=== PATIENT | male | born 1970 | race Caucasian/White ===

== ENCOUNTER 2016-11-03 13:18 | Emergency (ER) | payer MEDICAID ==
[2016-11-03] MEDS ORDERED: LIDOCAINE 1%-EPI 1:100000 20 ML MDV SUBQ STA (14:19)
[2016-11-03] MEDS ORDERED: CLINDAMYCIN 150 MG CAPSULE PO STA (14:20)
[2016-11-03] MEDS ORDERED: LIDOCAINE 1%-EPI 1:100000 20 ML MDV ONE (14:22)
[2016-11-03] MEDS ORDERED: CLINDAMYCIN 150 MG CAPSULE PO ONE (14:22)
[2016-11-03] MEDS ORDERED: SODIUM CHLORIDE 0.9% 1,000 ML IV ONE (14:29)
== END 2016-11-03 15:54 | disposition home or self-care (01) ==
DX: L02.416 Cutaneous abscess of left lower limb (principal); L03.116 Cellulitis of left lower limb; I10 Essential (primary) hypertension; Z87.891 Personal history of nicotine dependence
CPT/HCPCS: 10060; 36415; 73590; 80053; 83690; 85025; 99283; 99284; A9270

== ENCOUNTER 2017-02-07 15:01 | Outpatient (CLI) | payer MEDICAID | END 2017-02-07 15:02 | disposition home or self-care (01) | DX: T84.84XD Pain due to internal orthopedic prosthetic devices, implants and grafts, subsequent encounter (principal) ==

== ENCOUNTER 2017-02-12 09:34 | Emergency (ER) | payer MEDICAID ==
[2017-02-12] MEDS ORDERED: SULFAMETH/TRIMETH DS 800/160 MG TABLET PO STA (12:52)
[2017-02-12] MEDS ORDERED: LIDOCAINE 1%-EPI 1:100000 20 ML MDV SUBQ STA (12:52)
[2017-02-12] MEDS ORDERED: SULFAMETH/TRIMETH DS 800/160 MG TABLET PO ONE (12:55)
[2017-02-12] MEDS ORDERED: LIDOCAINE 1%-EPI 1:100000 20 ML MDV ONE (12:55)
== END 2017-02-12 13:35 | disposition home or self-care (01) ==
DX: L02.01 Cutaneous abscess of face (principal); I10 Essential (primary) hypertension; E78.00 Pure hypercholesterolemia, unspecified; K21.9 Gastro-esophageal reflux disease without esophagitis; Z86.14 Personal history of Methicillin resistant Staphylococcus aureus infection; Z87.891 Personal history of nicotine dependence
CPT/HCPCS: 10060; 87070; 87077; 87181; 87205; 99283; A9270

== ENCOUNTER 2017-06-16 19:51 | Emergency (ER) | payer MEDICAID ==
[2017-06-16 20:11] VITALS: BP 163/83
[2017-06-16] MEDS ORDERED: cefTRIAXone 1 GM VIAL IM STA (21:19)
[2017-06-16] MEDS ORDERED: HYDROcod/ACET 5/325 Prepack 6 PO ONE ×2 (21:19→21:50)
[2017-06-16] MEDS ORDERED: LIDOCAINE 1% 2 ML VIAL ONE (21:50)
[2017-06-16] MEDS ORDERED: cefTRIAXone 1 GM VIAL ONE (21:50)
--- NOTE | 2017-06-16 22:03 | ED Physician Documentation ---
History of Present Illness - Stated complaint Stated Complaint: FACIAL PX - Chief complaint Chief Complaint: General - History obtained from History obtained from: Patient - History of Present Illness Timing: How many days ago (3-4) - Additonal information Additional information: 46-year-old male has developed some swelling and redness over the right eye. He went into see his primary care doctor and was placed on some Bactrim. Despite this his redness and swelling has progressed has become much more painful and his eyes almost swollen shut. He has had a slight amount of drainage from the central portion of the swelling above the eyebrow on the right side. He has not had fever but does feel fatigued.He had something similar to this on his chin several months ago. He is also recently had dental work done on the right side. Review of Systems Constitutional: reports: Chills, Fatigue. denies: Fever Eyes: denies: Decreased vision Ears: reports: Loss of hearing. denies: Ear pain Nose: reports: Congestion Throat: denies: Sore throat Cardiac: denies: Chest pain / pressure, Palpitations Respiratory: denies: Dyspnea, Cough GI: denies: Abdominal Pain : denies: Dysuria, Frequency Skin: denies: Rash Musculoskeletal: denies: Neck pain, Back pain, Extremity pain Neurologic: denies: Generalized weakness, Focal weakness, Numbness PD PAST MEDICAL HISTORY - Past Medical History Cardiovascular: Hypertension, High cholesterol Respiratory: None Neuro: Headache/migraine, Other Endocrine/Autoimmune: None GI: GERD : None HEENT: None Psych: None Musculoskeletal: None Derm: None - Past Surgical History Past Surgical History: Yes - Present Medications Home Medications: Ambulatory Orders Medication Instructions Recorded Confirmed Hydrochlorothiazide 25 mg PO DAILY 06/16/16 06/16/17 Lisinopril 40 mg PO DAILY 06/16/16 06/16/17 amLODIPine [Norvasc] 5 mg PO DAILY 11/15/16 06/16/17 Sulfamethox/Trimeth 800/160 1 each PO BID #14 tablet 02/12/17 06/16/17 [Bactrim Ds 800/160] Amox/Clav 875/125 [Augmentin] 1 each PO Q12H #14 tablet 06/16/17 HYDROcod/ACETAM 5/325 [Sutter 5/325] 1 - 2 ea PO Q6H PRN #15 tablet 06/16/17 - Allergies Allergies/Adverse Reactions: Allergies Allergy/AdvReac Type Severity Reaction Status Date / Time No Known Drug Allergies Allergy Verified 02/12/17 09:56 - Social History Does the pt smoke?: No Smoking Status: Former smoker Does the pt drink ETOH?: No Does the pt have substance abuse?: Yes - Immunizations Immunizations are current?: Yes Immunizations: TDAP >10years/unknown PD ED PE NORMAL - Vitals Vital signs reviewed: Yes (Tachycardic and hypertensive) - General General: No acute distress, Well developed/nourished - HEENT HEENT: PERRL, EOMI, Other (The left TM is mildly erythematous with decreased landmarks the right is clear over the right eye there is swelling above and below lids and especially over the eyebrow. There is a specific area that appears to have some superficial drainage from it the area is firm and not fluctuant but extremely tender and erythematous. The use of bedside ultrasound shows a superficial collection of fluid.) - Neck Neck: Supple, no meningeal sign - Respiratory Respiratory: No respiratory distress - Derm Derm: Normal color, Warm and dry, No rash - Extremities Extremities: No deformity, No edema - Neuro Neuro: Alert and oriented X 3, No motor deficit, No sensory deficit, Normal speech - Psych Psych: Normal mood, Normal affect Results - Vitals Vitals: Vital Signs - 24 hr 06/16/17 20:09 Temperature 37.1 C Heart Rate 109 H Respiratory 22 Rate Blood Pressure 163/83 H O2 Saturation 100 Oxygen O2 Source Room air PD MEDICAL DECISION MAKING - ED course Complexity details: reviewed old records, re-evaluated patient, considered differential, d/w patient ED course: 46-year-old male with a swelling above the right eye has a cellulitis periorbital on the right side and there is question of abscess formation above the eyebrow. This is numbed and lanced with a #15 blade with return of only a scant amount of pus and the wound is explored deeply it is swollen but without ana pus. The drains easily.He is administered 1 g of Rocephin IM and will place him on some Augmentin and I have encouraged him to use a warm compress. He is instructed to return to the emergency department should he have any progression of symptoms. Departure - Departure Disposition: 01 Home, Self Care Clinical Impression: Periorbital cellulitis of right eye, Abscess Condition: Stable Instructions: ED Cellulitis Judit Orbital, ED Abscess IandD Follow-Up: Ann-Marie Breen ARNP [Primary Care Provider] - Prescriptions: Amox/Clav 875/125 [Augmentin] 1 each PO Q12H #14 tablet HYDROcod/ACETAM 5/325 [Sutter 5/325] 1 - 2 ea PO Q6H PRN #15 tablet PRN Reason: Pain Comments: Today it appears the antibiotic you are on the BActrim has failed and we are switching her antibiotic to Augmentin.
== END 2017-06-16 22:26 | disposition home or self-care (01) ==
LOC: ED 19:51
DX: L03.213 Periorbital cellulitis (principal); L02.01 Cutaneous abscess of face; I10 Essential (primary) hypertension; E78.00 Pure hypercholesterolemia, unspecified; Z87.891 Personal history of nicotine dependence
CPT/HCPCS: 10060; 96372; 99283

== ENCOUNTER 2017-07-19 12:41 | Outpatient (CLI) | payer MEDICAID ==
[2017-07-19 18:48] LABS: CHOLESTEROL 192 mg/dL; HDL CHOLESTEROL 48 mg/dL; LDL/HDL RATIO 2.5 (<3.6); TRIGLYCERIDES 130 mg/dL; VLDL CHOLESTEROL 26 mg/dL
== END 2017-07-19 12:42 | disposition home or self-care (01) ==
LOC: LAB.F 12:41
PROVIDERS: ATTEND Nurse Practitioner Family
DX: I10 Essential (primary) hypertension (principal); I50.9 Heart failure, unspecified
CPT/HCPCS: 36415; 80061; 83880; 84443

== ENCOUNTER 2017-11-21 08:00 | Outpatient (CLI) | payer MEDICAID ==
[2017-11-21 18:23] LABS: CREATININE 1.1 mg/dL (0.6-1.2)
== END 2017-11-21 08:01 | disposition home or self-care (01) ==
LOC: LAB.F 08:00
PROVIDERS: ATTEND Nurse Practitioner Family
DX: R60.0 Localized edema (principal)
CPT/HCPCS: 36415; 80048

== ENCOUNTER 2018-01-17 08:00 | Outpatient (CLI) | payer MEDICAID ==
[2018-01-17 18:01] LABS: CALCIUM 8.8 mg/dL (8.5-10.3); CREATININE 1.1 mg/dL (0.6-1.2)
== END 2018-01-17 08:01 | disposition home or self-care (01) ==
LOC: LAB.F 08:00
PROVIDERS: ATTEND Nurse Practitioner Family
DX: R60.0 Localized edema (principal)
CPT/HCPCS: 36415; 80048

== ENCOUNTER 2018-03-05 12:57 | Inpatient (IN) | payer MEDICAID ==
[2018-03-05 13:54] LABS: BASOPHILS % (AUTO) 0.2 %; EOSINOPHILS % (AUTO) 0.3 %; HGB - HEMOGLOBIN 14.3 g/dL (14.0-18.0); LYMPHOCYTES # (AUTO) 1.2 10^3/uL (1.5-3.5); LYMPHOCYTES % (AUTO) 9.2 %; MEAN CORPUSCULAR HEMOGLOBIN 32.6 pg (27.0-31.0); MEAN CORPUSCULAR HGB CONC 35.2 g/dL (32.0-36.0); MEAN CORPUSCULAR VOLUME 92.5 fL (80.0-94.0); MEAN PLATELET VOLUME 6.9 fL (7.4-11.4); MONOCYTES # (AUTO) 1.1 10^3/uL (0.0-1.0); MONOCYTES % (AUTO) 8.7 %; NEUTROPHILS # (AUTO) 10.6 10^3/uL (1.5-6.6); NEUTROPHILS % (AUTO) 81.6 %; PLT - PLATELET COUNT 295 10^3/uL (130-450); RED CELL DISTRIBUTION WIDTH 12.6 % (12.0-15.0)
[2018-03-05 14:06] LABS: ALBUMIN 3.8 g/dL (3.2-5.5); ALBUMIN/GLOBULIN RATIO 0.8 (1.0-2.2); BILIRUBIN,TOTAL 1.6 mg/dL (0.2-1.0); CALCIUM 8.8 mg/dL (8.5-10.3); CREATININE 1.2 mg/dL (0.6-1.2); TOTAL PROTEIN 8.3 g/dL (6.7-8.2)
[2018-03-05] MEDS ORDERED: SODIUM CHLORIDE 0.9% 1,000 ML IV ONE (15:06)
[2018-03-05] MEDS ORDERED: AMPICILLIN/SULBACTAM 3 GM in SODIUM CHLORIDE 0.9% MINIBAG 100 ML IV STA (15:06)
[2018-03-05] MEDS ORDERED: VANCOMYCIN INJ 2 GM in SODIUM CHLORIDE 0.9% 500 ML IV STA (15:06)
--- NOTE | 2018-03-05 15:11 | ED Physician Documentation ---
History of Present Illness - Stated complaint Stated Complaint: LEFT LEG SWOLLEN - Chief complaint Chief Complaint: Cardiac - History obtained from History obtained from: Patient - History of Present Illness Timing: How many days ago (3) Pain level max: 7 Pain level now: 7 Improved by: nothing Worsened by: palpation, walking - Additonal information Additional information: Patient is a 47-year-old gentleman who presents to the emergency department with redness and swelling to the left lower extremity for the past 2-3 days. States increasing pain. Subjective fevers and chills at home. No vomiting. States he is "prediabetic". Has not been on antibiotics recently. Review of Systems Constitutional: reports: Fever (subjective), Chills, Myalgias Ears: denies: Ear pain Nose: denies: Rhinorrhea / runny nose, Congestion Throat: denies: Sore throat Cardiac: denies: Chest pain / pressure Respiratory: denies: Cough, Wheezing GI: denies: Vomiting, Diarrhea Skin: denies: Rash Musculoskeletal: denies: Neck pain, Back pain Neurologic: denies: Focal weakness, Numbness, Headache PD PAST MEDICAL HISTORY - Past Medical History Past Medical History: Yes Cardiovascular: Hypertension, High cholesterol Respiratory: None Neuro: Headache/migraine, Other Endocrine/Autoimmune: None GI: GERD : None HEENT: None Psych: None Musculoskeletal: None Derm: None - Past Surgical History Past Surgical History: Yes - Present Medications Home Medications: Ambulatory Orders Medication Instructions Recorded Confirmed Lisinopril 40 mg PO DAILY 06/16/16 03/05/18 Furosemide [Lasix] 80 mg PO DAILY 03/05/18 03/05/18 Metoprolol Succinate 200 mg PO DAILY 03/05/18 03/05/18 Potassium Chloride 10 meq PO DAILY 03/05/18 03/05/18 - Allergies Allergies/Adverse Reactions: Allergies Allergy/AdvReac Type Severity Reaction Status Date / Time No Known Drug Allergies Allergy Verified 03/05/18 15:59 - Social History Does the pt smoke?: No Smoking Status: Never smoker Does the pt drink ETOH?: No Does the pt have substance abuse?: Yes - Immunizations Immunizations are current?: Yes Immunizations: TDAP >10years/unknown - POLST Patient has POLST: No PD ED PE NORMAL - Vitals Vital signs reviewed: Yes - General General: Alert and oriented X 3, No acute distress - HEENT HEENT: Moist mucous membranes - Neck Neck: Supple, no meningeal sign - Cardiac Cardiac: RRR, Strong equal pulses - Respiratory Respiratory: No respiratory distress, Clear bilaterally - Abdomen Abdomen: Soft, Non tender, Non distended - Back Back: No CVA TTP, No spinal TTP - Derm Derm: Warm and dry - Extremities Extremities: Other (2+ BLE edema, L leg is diffusely erythematous, especially below the knee to the toes. erythemtous streaking up to the groin. No crepitus) - Neuro Neuro: Alert and oriented X 3 - Psych Psych: Normal mood, Normal affect Results - Vitals Vitals: Vital Signs - 24 hr 03/05/18 13:02 Temperature 36.3 C L Heart Rate 104 H Respiratory 20 Rate Blood Pressure 150/86 H O2 Saturation 97 Oxygen O2 Source Room air - Labs Labs: Laboratory Tests 03/05/18 03/05/18 03/05/18 13:50 13:50 13:50 WBC 13.0 H RBC 4.40 L Hgb 14.3 Hct 40.7 L MCV 92.5 MCH 32.6 H MCHC 35.2 RDW 12.6 Plt Count 295 MPV 6.9 L Neut # 10.6 H Lymph # 1.2 L Reagan # 1.1 H Eos # 0.0 Baso # 0.0 Absolute Nucleated RBC 0.00 Nucleated RBC % 0.0 Sodium 132 L Potassium 3.8 Chloride 97 L Carbon Dioxide 23 Anion Gap 12.0 BUN 17 Creatinine 1.2 Estimated GFR (MDRD) 65 L Glucose 192 H Lactic Acid Calcium 8.8 Total Bilirubin 1.6 H AST 41 ALT 43 Alkaline Phosphatase 83 Troponin I < 0.04 B-Natriuretic Peptide Total Protein 8.3 H Albumin 3.8 Globulin 4.5 H Albumin/Globulin Ratio 0.8 L Lipase 29 Ethyl Alcohol 03/05/18 03/05/18 03/05/18 13:50 13:50 15:11 WBC RBC Hgb Hct MCV MCH MCHC RDW Plt Count MPV Neut # Lymph # Reagan # Eos # Baso # Absolute Nucleated RBC Nucleated RBC % Sodium Potassium Chloride Carbon Dioxide Anion Gap BUN Creatinine Estimated GFR (MDRD) Glucose Lactic Acid 1.2 Calcium Total Bilirubin AST ALT Alkaline Phosphatase Troponin I B-Natriuretic Peptide 27 Total Protein Albumin Globulin Albumin/Globulin Ratio Lipase Ethyl Alcohol < 5.0 PD MEDICAL DECISION MAKING - ED course Complexity details: reviewed results, re-evaluated patient, considered differential, d/w patient, d/w family, d/w financial reporting consultant ([id number] - Dr. Kirk ( hospitalist who accepts)) ED course: Patient is a 47-year-old male with extensive cellulitis of the left lower extremity with lymphangitic spread to the groin. There is an open wound as well. Will start on broad-spectrum antibiotics and admit for IV antibiotics. No evidence of necrotizing fasciitis. No crepitus. Discussed the case with Dr. Kirk, hospitalist who accepts. Blood cultures also drawn. This document was made in part using voice recognition software. While efforts are made to proofread this document, sound alike and grammatical errors may occur. Departure - Departure Disposition: 66 [facility] DC/Xfer Clinical Impression: Cellulitis Qualifiers: Site of cellulitis: extremity Site of cellulitis of extremity: lower extremity Laterality: left Qualified Code(s): L03.116 - Cellulitis of left lower limb Condition: Stable Discharge Date/Time: 03/05/18 16:14
[2018-03-05] MEDS ORDERED: SODIUM CHLORIDE FLUSH 0.9% 10 ML SYRINGE IVP PRN (15:22)
[2018-03-05] MEDS ORDERED: ACETAMINOPHEN 325 MG TABLET PO PRN (17:07)
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
[2018-03-05] MEDS: SODIUM CHLORIDE 0.9% 1,000 ML IV SCH (17:51)
[2018-03-05] MEDS ORDERED: HYDROmorphone 2 MG/ML VIAL IVP PRN (17:56)
[2018-03-05] MEDS: SODIUM CHLORIDE FLUSH 0.9% 10 ML SYRINGE IVP SCH ×3 (18:39→23:53)
[2018-03-05 19:48] LABS: MUDS CUTOFF CONCENTRATIONS CUTOFF CONC BELOW:
[2018-03-05 20:03] LABS: COCAINE SCREEN URINE NEGATIVE (NEGATIVE); METHAMPHETAMINES SCREEN, URINE POSITIVE (NEGATIVE); OPIATE SCREEN, URINE NEGATIVE (NEGATIVE)
[2018-03-05 20:04] LABS: AMPHETAMINE SCREEN,URINE POSITIVE (NEGATIVE); BENZODIAZEPINES SCREEN, URINE NEGATIVE (NEGATIVE); METHADONE SCREEN, URINE NEGATIVE (NEGATIVE); OXYCODONE SCREEN, URINE NEGATIVE (NEGATIVE); PROPOXYPHENE SCREEN, URINE NEGATIVE (NEGATIVE); TRICYCLIC ANTIDEPRESSANT,URINE NEGATIVE (NEGATIVE)
[2018-03-05] MEDS: METOPROLOL SUCCINATE 50 MG TABLET PO SCH (21:31)
[2018-03-05] MEDS: ENOXAPARIN 40 MG/0.4 ML SYRINGE SUBQ SCH (21:31)
[2018-03-05] MEDS: CLINDAMYCIN 900 MG/50 ML 50 ML IV SCH (23:51)
[2018-03-06] MEDS ORDERED: ONDANSETRON 4 MG/2 ML VIAL IVP PRN (00:07)
[2018-03-06] MEDS: SODIUM CHLORIDE 0.9% 1,000 ML IV SCH (02:34)
[2018-03-06 04:36] LABS: BILIRUBIN,URINE NEGATIVE (NEGATIVE); GLUCOSE, URINE (UA) NEGATIVE (NEGATIVE); KETONES,URINE (UA) NEGATIVE (NEGATIVE); LEUKOCYTE ESTERASE, URINE NEGATIVE (NEGATIVE); NITRITE,URINE NEGATIVE (NEGATIVE); OCCULT BLOOD,URINE NEGATIVE (NEGATIVE); PROTEIN,URINE 30 mg/dL (NEGATIVE); UROBILINOGEN,URINE 0.2 (NORMAL) E.U./dL (NORMAL)
[2018-03-06 04:38] LABS: CLARITY,URINE CLEAR (CLEAR)
[2018-03-06 04:42] LABS: BACTERIA,URINE None Seen /HPF (None Seen); RBC,URINE None Seen /HPF (0-5); SQUAMOUS EPITHELIAL CELL,UR RARE Squamous (<= Few)
[2018-03-06] MEDS: CLINDAMYCIN 900 MG/50 ML 50 ML IV SCH (05:42)
[2018-03-06 06:02] LABS: BASOPHILS % (AUTO) 0.5 %; EOSINOPHILS # (AUTO) 0.1 10^3/uL (0.0-0.7); EOSINOPHILS % (AUTO) 0.7 %; HGB - HEMOGLOBIN 13.1 g/dL (14.0-18.0); LYMPHOCYTES # (AUTO) 1.4 10^3/uL (1.5-3.5); LYMPHOCYTES % (AUTO) 15.3 %; MEAN CORPUSCULAR HEMOGLOBIN 31.8 pg (27.0-31.0); MEAN CORPUSCULAR HGB CONC 33.8 g/dL (32.0-36.0); MEAN CORPUSCULAR VOLUME 94.2 fL (80.0-94.0); MONOCYTES # (AUTO) 1.1 10^3/uL (0.0-1.0); MONOCYTES % (AUTO) 12.1 %; NEUTROPHILS # (AUTO) 6.4 10^3/uL (1.5-6.6); NEUTROPHILS % (AUTO) 71.4 %; PLT - PLATELET COUNT 275 10^3/uL (130-450); RED BLOOD COUNT 4.12 10^6/uL (4.70-6.10); RED CELL DISTRIBUTION WIDTH 12.4 % (12.0-15.0)
[2018-03-06 06:17] LABS: HEMOGLOBIN A1C 0.55 g/dL; HEMOGLOBIN A1C % 5.5 % (4.6-6.2)
[2018-03-06 06:19] LABS: CHOL/HDL RATIO 5.1 (<5.0); CHOLESTEROL 137 mg/dL; HDL CHOLESTEROL 27 mg/dL; LDL CHOLESTEROL,CALCULATED 82 mg/dL; VLDL CHOLESTEROL 28 mg/dL
[2018-03-06 06:31] LABS: ALBUMIN/GLOBULIN RATIO 0.7 (1.0-2.2); BILIRUBIN,TOTAL 1.3 mg/dL (0.2-1.0); CALCIUM 8.2 mg/dL (8.5-10.3); CREATININE 1.1 mg/dL (0.6-1.2); CRP - C-REACTIVE PROTEIN 18.2 mg/dL (0-1.0); TOTAL PROTEIN 7.2 g/dL (6.7-8.2)
[2018-03-06 08:18] VITALS: BP 134/91
[2018-03-06] MEDS: SODIUM CHLORIDE FLUSH 0.9% 10 ML SYRINGE IVP SCH (08:40)
[2018-03-06] MEDS: ENOXAPARIN 40 MG/0.4 ML SYRINGE SUBQ SCH (08:41)
[2018-03-06] MEDS: METOPROLOL SUCCINATE 50 MG TABLET PO SCH (08:41)
[2018-03-06] MEDS ORDERED: LACTOBACILLUS RHAMNOSUS GG CAPSULE PO SCH (09:00)
[2018-03-06] MEDS ORDERED: POLYETHYLENE GLYCOL 3350 17 GM PACKET PO SCH (09:00)
--- NOTE | 2018-03-06 12:35 | Discharge Plan ---
Discharge Plan Disposition: Home, Self Care Condition: Good Prescriptions: Clindamycin HCl [Clindamycin 150MG CAP] 150 mg PO TID 10 Days #90 capsule Saccharomyces Boulardii [Florastor] 250 mg PO BID 20 Days #40 capsule Diet: Regular Activity Restrictions: Activity as Tolerated Shower Restrictions: No Driving Restrictions: No Weight Bearing: Full Weight Additional Instructions or Follow Up instructions: You were treated overnight for left lower extremity cellulitis. You need to take an antibiotic for at least the next 10 days. If you do not, your infection will keep spreading and may cause a full body infection if left untreated. Please see your primary doctor within one week to make sure things are healing well. No Smoking: If you smoke, Please STOP! Call for help. Follow-up with: Ann-Marie Breen ARNP [Primary Care Provider] -
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
== END 2018-03-06 13:10 | disposition home or self-care (01) | DRG 603 ==
LOC: ED 12:57 → MS2 15:23
PROVIDERS: ADMIT Nurse Practitioner; ATTEND Nurse Practitioner
DX: L03.116 Cellulitis of left lower limb (principal); Z68.41 Body mass index [BMI] 40.0-44.9, adult; F15.280 Other stimulant dependence with stimulant-induced anxiety disorder; E66.01 Morbid (severe) obesity due to excess calories; G89.29 Other chronic pain; R73.03 Prediabetes; I10 Essential (primary) hypertension; E78.5 Hyperlipidemia, unspecified; K21.9 Gastro-esophageal reflux disease without esophagitis; H54.7 Unspecified visual loss; F32.9 Major depressive disorder, single episode, unspecified; M19.90 Unspecified osteoarthritis, unspecified site; Z86.14 Personal history of Methicillin resistant Staphylococcus aureus infection; F15.24 Other stimulant dependence with stimulant-induced mood disorder; F10.21 Alcohol dependence, in remission
CPT/HCPCS: 36415; 80053; 80061; 80306; 80320; 81001; 81003; 82977; 83036; 83605; 83690; 83721; 83880; 84484; 85025; 85651; 86140; 87040; 87086; 87640; 93005; 93306; 99283; 99284

== ENCOUNTER 2018-05-19 16:00 | Outpatient (CLI) | payer MEDICAID | END 2018-05-20 08:01 | disposition home or self-care (01) | LOC: LAB.R 16:00 | PROVIDERS: ATTEND Nurse Practitioner Family | DX: L08.89 Other specified local infections of the skin and subcutaneous tissue (principal) | CPT/HCPCS: 87070; 87181; 87205 ==

== ENCOUNTER 2020-12-29 17:32 | Outpatient (CLI) | payer MEDICAID | END 2020-12-29 23:59 | disposition short-term general hospital (02) | LOC: EMS 17:32 | DX: R40.4 Transient alteration of awareness (principal) | CPT/HCPCS: A0425; A0427; A0999 ==

== ENCOUNTER 2021-01-25 16:18 | Outpatient (CLI) | payer MEDICAID ==
[2021-01-25 20:05] LABS: BASOPHILS % (AUTO) 0.3 %; EOSINOPHILS % (AUTO) 0.5 %; HCT - HEMATOCRIT 34.4 % (42.0-52.0); HGB - HEMOGLOBIN 11.7 g/dL (14.0-18.0); LYMPHOCYTES % (AUTO) 13.4 %; MEAN CORPUSCULAR HEMOGLOBIN 32.1 pg (27.0-31.0); MEAN CORPUSCULAR VOLUME 94.5 fL (80.0-94.0); MEAN PLATELET VOLUME 9.3 fL (7.4-11.4); MONOCYTES # (AUTO) 0.2 10^3/uL (0.0-1.0); MONOCYTES % (AUTO) 2.9 %; NEUTROPHILS # (AUTO) 6.3 10^3/uL (1.5-6.6); PLT - PLATELET COUNT 386 10^3/uL (130-450); RED BLOOD COUNT 3.64 10^6/uL (4.70-6.10); RED CELL DISTRIBUTION WIDTH 12.6 % (12.0-15.0); WHITE BLOOD COUNT 7.7 x10^3/uL (4.8-10.8)
[2021-01-25 20:26] LABS: BILIRUBIN,URINE NEGATIVE (NEGATIVE); GLUCOSE, URINE (UA) 250 mg/dL (NEGATIVE); KETONES,URINE (UA) NEGATIVE (NEGATIVE); LEUKOCYTE ESTERASE, URINE NEGATIVE (NEGATIVE); NITRITE,URINE NEGATIVE (NEGATIVE); OCCULT BLOOD,URINE NEGATIVE (NEGATIVE); PH,URINE 6.5 PH (5.0-7.5); PROTEIN,URINE NEGATIVE (NEGATIVE); UROBILINOGEN,URINE 0.2 (NORMAL) E.U./dL (NORMAL)
[2021-01-25 20:35] LABS: BACTERIA,URINE None Seen /HPF (None Seen); CLARITY,URINE CLEAR (CLEAR); RBC,URINE 0-5 /HPF (0-5); SQUAMOUS EPITHELIAL CELL,UR NONE SEEN (<= Few); WBC,URINE 0-3 /HPF (0-3)
[2021-01-25 22:23] LABS: ALBUMIN 4.1 g/dL (3.2-5.5); ALBUMIN/GLOBULIN RATIO 1.1 (1.0-2.2); BILIRUBIN,TOTAL 0.6 mg/dL (0.2-1.0); CALCIUM 9.3 mg/dL (8.5-10.3); CREATININE 1.7 mg/dL (0.6-1.2); POTASSIUM 4.1 mmol/L (3.5-5.0); TOTAL PROTEIN 7.9 g/dL (6.7-8.2)
== END 2021-01-25 16:19 | disposition home or self-care (01) ==
LOC: LAB.S 16:18
PROVIDERS: ATTEND Internal Medicine
DX: I10 Essential (primary) hypertension (principal)
CPT/HCPCS: 36415; 80053; 81001; 85025; 87086

== ENCOUNTER 2021-03-13 16:08 | Outpatient (CLI) | payer MEDICAID ==
[2021-03-13 20:58] LABS: ALBUMIN 4.4 g/dL (3.2-5.5); ALBUMIN/GLOBULIN RATIO 1.1 (1.0-2.2); BILIRUBIN,TOTAL 1.1 mg/dL (0.2-1.0); CALCIUM 9.3 mg/dL (8.5-10.3); CREATININE 1.6 mg/dL (0.6-1.2); PHOSPHORUS 3.3 mg/dL (2.5-4.6); POTASSIUM 4.6 mmol/L (3.5-5.0); TOTAL PROTEIN 8.4 g/dL (6.7-8.2)
[2021-03-13 21:39] LABS: ESTIMATED AVERAGE GLUCOSE 140 mg/dL (70-100); HEMOGLOBIN A1c% 6.5 % (4.27-6.07)
== END 2021-03-13 16:09 | disposition home or self-care (01) ==
LOC: LAB.S 16:08
PROVIDERS: ATTEND Internal Medicine
DX: N28.9 Disorder of kidney and ureter, unspecified (principal); E11.8 Type 2 diabetes mellitus with unspecified complications
CPT/HCPCS: 36415; 80053; 83036; 84100

== ENCOUNTER 2021-06-09 15:40 | Outpatient (CLI) | payer MEDICAID ==
[2021-06-09 20:17] LABS: ALBUMIN 3.9 g/dL (3.2-5.5); BILIRUBIN,TOTAL 1.3 mg/dL (0.2-1.0); CALCIUM 9.1 mg/dL (8.5-10.3); CREATININE 1.4 mg/dL (0.6-1.2); POTASSIUM 4.2 mmol/L (3.5-5.0); TOTAL PROTEIN 7.9 g/dL (6.7-8.2)
[2021-06-09 20:18] LABS: ESTIMATED AVERAGE GLUCOSE 143 mg/dL (70-100); HEMOGLOBIN A1c% 6.6 % (4.27-6.07)
== END 2021-06-09 15:41 | disposition home or self-care (01) ==
LOC: LAB.S 15:40
PROVIDERS: ATTEND Internal Medicine
DX: N28.9 Disorder of kidney and ureter, unspecified (principal); E11.8 Type 2 diabetes mellitus with unspecified complications
CPT/HCPCS: 36415; 80053; 83036

== ENCOUNTER 2021-06-20 13:00 | Outpatient (CLI) | payer MEDICAID ==
[2021-06-20 16:06] LABS: ALBUMIN 4.2 g/dL (3.2-5.5); ALBUMIN/GLOBULIN RATIO 1.1 (1.0-2.2); CALCIUM 9.7 mg/dL (8.5-10.3); CREATININE 1.5 mg/dL (0.6-1.2); POTASSIUM 4.9 mmol/L (3.5-5.0); TOTAL PROTEIN 8.1 g/dL (6.7-8.2)
== END 2021-06-20 13:01 | disposition home or self-care (01) ==
LOC: LAB.S 13:00
PROVIDERS: ATTEND Internal Medicine
DX: N28.9 Disorder of kidney and ureter, unspecified (principal)
CPT/HCPCS: 36415; 80053

== ENCOUNTER 2021-07-28 15:01 | Outpatient (CLI) | payer MEDICAID ==
[2021-07-28 20:09] LABS: ALBUMIN 4.4 g/dL (3.2-5.5); ALBUMIN/GLOBULIN RATIO 1.1 (1.0-2.2); BILIRUBIN,TOTAL 1.1 mg/dL (0.2-1.0); CALCIUM 9.4 mg/dL (8.5-10.3); CREATININE 1.2 mg/dL (0.6-1.2); POTASSIUM 4.5 mmol/L (3.5-5.0); TOTAL PROTEIN 8.4 g/dL (6.7-8.2)
== END 2021-07-28 15:02 | disposition home or self-care (01) ==
LOC: LAB.S 15:01
PROVIDERS: ATTEND Internal Medicine
DX: R60.9 Edema, unspecified (principal)
CPT/HCPCS: 36415; 80053

== ENCOUNTER 2021-09-14 18:19 | Emergency (ER) | payer MEDICAID ==
[2021-09-14] MEDS ORDERED: SODIUM CHLORIDE 0.9% 1,000 ML IV STA ×2 (18:34)
[2021-09-14] MEDS ORDERED: INSULIN REGULAR HUMAN 100 UNIT/1 ML 10 ML MDV SUBQ STA (18:34)
[2021-09-14 18:59] LABS: BASOPHILS # (AUTO) 0.1 10^3/uL (0.0-0.1); BASOPHILS % (AUTO) 0.5 %; EOSINOPHILS # (AUTO) 0.2 10^3/uL (0.0-0.7); EOSINOPHILS % (AUTO) 2.1 %; HCT - HEMATOCRIT 39.6 % (42.0-52.0); HGB - HEMOGLOBIN 14.2 g/dL (14.0-18.0); LYMPHOCYTES # (AUTO) 1.8 10^3/uL (1.5-3.5); LYMPHOCYTES % (AUTO) 17.1 %; MEAN CORPUSCULAR HEMOGLOBIN 33.2 pg (27.0-31.0); MEAN CORPUSCULAR HGB CONC 35.9 g/dL (32.0-36.0); MEAN CORPUSCULAR VOLUME 92.5 fL (80.0-94.0); MEAN PLATELET VOLUME 9.4 fL (7.4-11.4); MONOCYTES # (AUTO) 0.7 10^3/uL (0.0-1.0); MONOCYTES % (AUTO) 6.3 %; NEUTROPHILS # (AUTO) 7.7 10^3/uL (1.5-6.6); NEUTROPHILS % (AUTO) 73.5 %; PLT - PLATELET COUNT 389 10^3/uL (130-450); RED BLOOD COUNT 4.28 10^6/uL (4.70-6.10); RED CELL DISTRIBUTION WIDTH 11.9 % (12.0-15.0); WHITE BLOOD COUNT 10.5 x10^3/uL (4.8-10.8)
[2021-09-14 19:04] LABS: VBG PH 7.392 (7.31-7.41)
[2021-09-14 19:05] LABS: VBG BASE EXCESS -1.7 mmol/L (-2 - +2); VBG HCO3 22.8 mmol/L (23-28); VBG OXYGEN SATURATION 94.6 % (60-80); VBG PCO2 38.4 mmHg (41-51); VBG PO2 72.6 mmHg (25-47)
[2021-09-14 19:13] LABS: ALBUMIN 4.4 g/dL (3.2-5.5); ALBUMIN/GLOBULIN RATIO 1.1 (1.0-2.2); ALKALINE PHOSPHATASE 107 IU/L (42-121); ALT ALANINE AMINOTRANSFERASE 32 IU/L (10-60); AST ASPARTATE AMINOTRANSFERASE 21 IU/L (10-42); BILIRUBIN,TOTAL 1.1 mg/dL (0.2-1.0); BUN - BLOOD UREA NITROGEN 30 mg/dL (6-20); CARBON DIOXIDE - CO2 26 mmol/L (21-32); CHLORIDE 91 mmol/L (101-111); CREATININE 1.5 mg/dL (0.6-1.2); GFR - MDRD 49 (>89); LIPASE 111 U/L (22-51); POTASSIUM 4.6 mmol/L (3.5-5.0); SODIUM 126 mmol/L (135-145); TOTAL PROTEIN 8.5 g/dL (6.7-8.2)
[2021-09-14 19:15] LABS: GLUCOSE 529 mg/dL (70-100)
[2021-09-14 19:19] LABS: KETONES, SERUM (ACETEST) NEGATIVE (NEGATIVE)
[2021-09-14] MEDS ORDERED: INSULIN REGULAR HUMAN 100 UNIT/1 ML 10 ML MDV IVP STA (20:01)
[2021-09-14 20:57] VITALS: BP 126/74
--- NOTE | 2021-09-14 20:57 | ED Physician Documentation ---
History of Present Illness - Stated complaint Stated Complaint: PER CLINIC, HIGH BLOOD SUGAR - Chief complaint Chief Complaint: General - History obtained from History obtained from: Patient - History of Present Illness Timing: Today Pain level max: 0 Pain level now: 0 - Additonal information Additional information: Patient is a 51-year-old male, longstanding history of diabetes who presents to the emergency department with hyperglycemia at the walk-in clinic today. They sent him here for further evaluation. Patient is asymptomatic. He stopped taking all of his insulin about 6 months ago. He states his blood sugar is been 4-500 for the past week or 2. No fevers. No chills. No abdominal pain. No v omiting. He did take his long-acting insulin last night. Urinalysis was negative for infection at the walk-in clinic. 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 : Renal insuffiency, Nocturia HEENT: Chronic vision loss, Other Psych: Depression, Anxiety, Other Musculoskeletal: Osteoarthritis, Fatigue, Chronic back pain Derm: Other drug resistant infections - Past Surgical History Past Surgical History: Yes Ortho: Arthroscopic surgery, Other Neuro: Craniotomy - Present Medications Home Medications: Ambulatory Orders Medication Instructions Recorded Confirmed Lisinopril 40 mg PO DAILY 06/16/16 03/05/18 Furosemide [Lasix] 80 mg PO DAILY 03/05/18 03/05/18 Metoprolol Succinate 200 mg PO DAILY 03/05/18 03/05/18 Potassium Chloride 10 meq PO DAILY 03/05/18 03/05/18 Clindamycin HCl [Clindamycin 150MG 150 mg PO TID 10 Days #90 capsule 03/06/18 CAP] Saccharomyces Boulardii [Florastor] 250 mg PO BID 20 Days #40 capsule 03/06/18 - Allergies Allergies/Adverse Reactions: Allergies Allergy/AdvReac Type Severity Reaction Status Date / Time No Known Drug Allergies Allergy Verified 09/14/21 18:24 - Social History Does the pt smoke?: No Smoking Status: Never smoker Does the pt drink ETOH?: No Does the pt have substance abuse?: Yes - Immunizations Immunizations are current?: Yes Immunizations: TDAP >10years/unknown - POLST Patient has POLST: No POLST Status: Full Code PD ED PE NORMAL - Vitals Vital signs reviewed: Yes - General General: Alert and oriented X 3, No acute distress, Well developed/nourished - HEENT HEENT: PERRL, Moist mucous membranes - Neck Neck: Supple, no meningeal sign - Cardiac Cardiac: RRR, Strong equal pulses - Respiratory Respiratory: No respiratory distress, Clear bilaterally - Abdomen Abdomen: Soft, Non tender, Non distended - Derm Derm: Warm and dry - Extremities Extremities: No calf tenderness / cord - Neuro Neuro: Alert and oriented X 3 - Psych Psych: Normal mood, Normal affect Results - Vitals Vitals: Vital Signs - 24 hr 09/14/21 09/14/21 18:21 20:56 Temperature 36.5 C 36.9 C Heart Rate 99 87 Respiratory 18 15 Rate Blood Pressure 143/83 H 126/74 O2 Saturation 97 98 Oxygen O2 Source Room air - Labs Labs: Laboratory Tests 09/14/21 09/14/21 09/14/21 18:49 18:49 18:49 WBC 10.5 RBC 4.28 L Hgb 14.2 Hct 39.6 L MCV 92.5 MCH 33.2 H MCHC 35.9 RDW 11.9 L Plt Count 389 MPV 9.4 Neut # (Auto) 7.7 H Lymph # (Auto) 1.8 [place] # (Auto) 0.7 Eos # (Auto) 0.2 Baso # (Auto) 0.1 Absolute Nucleated RBC 0.00 Nucleated RBC % 0.0 VBG pH 7.392 VBG pCO2 38.4 L VBG pO2 72.6 H VBG HCO3 22.8 L VBG Total CO2 24.0 VBG O2 Saturation 94.6 H VBG Base Excess -1.7 Sodium 126 L Potassium 4.6 Chloride 91 L Carbon Dioxide 26 Anion Gap 9.0 BUN 30 H Creatinine 1.5 H Estimated GFR (MDRD) 49 L Glucose 529 H* POC Whole Bld Glucose Calcium 9.0 Total Bilirubin 1.1 H AST 21 ALT 32 Alkaline Phosphatase 107 Total Protein 8.5 H Albumin 4.4 Globulin 4.1 Albumin/Globulin Ratio 1.1 Lipase 111 H Serum Ketones NEGATIVE 09/14/21 09/14/21 19:50 20:43 WBC RBC Hgb Hct MCV MCH MCHC RDW Plt Count MPV Neut # (Auto) Lymph # (Auto) [place] # (Auto) Eos # (Auto) Baso # (Auto) Absolute Nucleated RBC Nucleated RBC % VBG pH VBG pCO2 VBG pO2 VBG HCO3 VBG Total CO2 VBG O2 Saturation VBG Base Excess Sodium Potassium Chloride Carbon Dioxide Anion Gap BUN Creatinine Estimated GFR (MDRD) Glucose POC Whole Bld Glucose 530 H* 375 H Calcium Total Bilirubin AST ALT Alkaline Phosphatase Total Protein Albumin Globulin Albumin/Globulin Ratio Lipase Serum Ketones PD MEDICAL DECISION MAKING - ED course Complexity details: reviewed results, re-evaluated patient, considered differential, d/w patient ED course: Patient given insulin, IV fluids, blood sugar decreased. Patient continues to be asymptomatic here Recommend that he restart his insulin at home. No evidence of DKA. Patient counseled regarding signs and symptoms for which I believe and urgent re-evaluation would be necessary. Patient with good understanding of and agreement to plan and is comfortable going home at this time This document was made in part using voice recognition software. While efforts are made to proofread this document, sound alike and grammatical errors may occur. Departure - Departure Disposition: 01 Home, Self Care Clinical Impression: Hyperglycemia Condition: Good Instructions: ED Hyperglycemia Diabetic Follow-Up: Leo Saldivar MD [Primary Care Provider] - Within 3 Days Comments: Is important that you restart all of your insulin at home. Please follow-up with your doctor for further care. Return if you worsen. Your doctor should have you on an insulin sliding scale to cover your blood sugar spikes. Discharge Date/Time: 09/14/21 21:03
== END 2021-09-14 21:03 | disposition home or self-care (01) ==
LOC: ED 18:19
DX: E11.65 Type 2 diabetes mellitus with hyperglycemia (principal)
CPT/HCPCS: 36415; 80053; 82009; 82803; 83690; 85025; 96360; 96361; 99283; J1815

== ENCOUNTER 2021-11-08 08:00 | Outpatient (CLI) | payer MEDICAID | END 2021-11-08 23:59 | LOC: LAB.S 08:00 | PROVIDERS: ATTEND Emergency Medicine | DX: I87.2 Venous insufficiency (chronic) (peripheral) (principal); I10 Essential (primary) hypertension; E10.9 Type 1 diabetes mellitus without complications | CPT/HCPCS: 36415; 80053; 83036; 85025; 87070; 87181; 87205 ==

== ENCOUNTER 2021-11-08 14:18 | Outpatient (CLI) | payer MEDICAID ==
[2021-11-08 19:48] LABS: BASOPHILS # (AUTO) 0.1 10^3/uL (0.0-0.1); BASOPHILS % (AUTO) 0.6 %; EOSINOPHILS # (AUTO) 0.1 10^3/uL (0.0-0.7); EOSINOPHILS % (AUTO) 1.2 %; HGB - HEMOGLOBIN 13.8 g/dL (14.0-18.0); LYMPHOCYTES # (AUTO) 1.5 10^3/uL (1.5-3.5); LYMPHOCYTES % (AUTO) 17.4 %; MEAN CORPUSCULAR HEMOGLOBIN 32.5 pg (27.0-31.0); MEAN CORPUSCULAR HGB CONC 33.7 g/dL (32.0-36.0); MEAN CORPUSCULAR VOLUME 96.7 fL (80.0-94.0); MEAN PLATELET VOLUME 9.3 fL (7.4-11.4); MONOCYTES # (AUTO) 0.7 10^3/uL (0.0-1.0); MONOCYTES % (AUTO) 8.6 %; PLT - PLATELET COUNT 345 10^3/uL (130-450); RED BLOOD COUNT 4.24 10^6/uL (4.70-6.10); RED CELL DISTRIBUTION WIDTH 12.4 % (12.0-15.0); WHITE BLOOD COUNT 8.4 x10^3/uL (4.8-10.8)
[2021-11-08 19:59] LABS: ALBUMIN 4.1 g/dL (3.2-5.5); ALBUMIN/GLOBULIN RATIO 1.1 (1.0-2.2); BILIRUBIN,TOTAL 1.1 mg/dL (0.2-1.0); CALCIUM 8.9 mg/dL (8.5-10.3); CREATININE 1.7 mg/dL (0.6-1.2); POTASSIUM 4.3 mmol/L (3.5-5.0); TOTAL PROTEIN 7.8 g/dL (6.7-8.2)
[2021-11-08 21:03] LABS: ESTIMATED AVERAGE GLUCOSE 217 mg/dL (70-100); HEMOGLOBIN A1c% 9.2 % (4.27-6.07)
== END 2021-11-08 14:19 | disposition home or self-care (01) ==
LOC: LAB.S 14:18
PROVIDERS: ATTEND Internal Medicine
DX: I10 Essential (primary) hypertension (principal); E10.9 Type 1 diabetes mellitus without complications
CPT/HCPCS: 36415; 80053; 83036; 85025

== ENCOUNTER 2021-11-10 04:43 | Emergency (ER) | payer MEDICAID ==
[2021-11-10 04:54] VITALS: BP 142/79
[2021-11-10] MEDS ORDERED: cefTRIAXone 1 GM VIAL IM STA (05:12)
[2021-11-10] MEDS ORDERED: LIDOCAINE 1% 2 ML VIAL MC ONE (05:12)
--- NOTE | 2021-11-10 05:14 | ED Physician Documentation ---
PD HPI SKIN - Stated complaint Stated Complaint: SPIDER BITE LT CALF - Chief complaint Chief Complaint: Wound - History obtained from History obtained from: Patient - Additional information Additional information: 51yM with pmh DM on insulin, recent dx of cellulitis at [facility] s/p 1 dose of IM antibiotics and 2-3 doses of keflex p/w spreading erythema and blistering at the skin surface of the LLE. patient unsure if he had a possible insect bite to the area. denies fever or trauma. 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 : Renal insuffiency, Nocturia HEENT: Chronic vision loss, Other Psych: Depression, Anxiety, Other Musculoskeletal: Osteoarthritis, Fatigue, Chronic back pain Derm: Other drug resistant infections - Past Surgical History Past Surgical History: Yes Ortho: Arthroscopic surgery, Other Neuro: Craniotomy - Present Medications Home Medications: Ambulatory Orders Medication Instructions Recorded Confirmed Lisinopril 40 mg PO DAILY 06/16/16 03/05/18 Furosemide [Lasix] 80 mg PO DAILY 03/05/18 03/05/18 Metoprolol Succinate 200 mg PO DAILY 03/05/18 03/05/18 Potassium Chloride 10 meq PO DAILY 03/05/18 03/05/18 Clindamycin HCl [Clindamycin 150MG 150 mg PO TID 10 Days #90 capsule 03/06/18 CAP] Saccharomyces Boulardii [Florastor] 250 mg PO BID 20 Days #40 capsule 03/06/18 Doxycycline Hyclate 100 mg PO BID 10 Days #20 tab 11/10/21 Mupirocin 2% Oint [Bactroban 2% 1 applic TOP TID 10 Days #50 gm 11/10/21 Oint] - Allergies Allergies/Adverse Reactions: Allergies Allergy/AdvReac Type Severity Reaction Status Date / Time No Known Drug Allergies Allergy Verified 11/10/21 04:51 - Social History Does the pt smoke?: No Smoking Status: Never smoker Does the pt drink ETOH?: No Does the pt have substance abuse?: Yes - Immunizations Immunizations are current?: Yes Immunizations: TDAP >10years/unknown - POLST Patient has POLST: No POLST Status: Full Code PD ED PE NORMAL - Vitals Vital signs reviewed: Yes - General General: Alert and oriented X 3, No acute distress, Well developed/nourished, Other (large body habitus) - HEENT HEENT: Atraumatic, PERRL, EOMI - Derm Derm: Other (chronic appearing vascular congestion and swelling to BL LE. L anteromedial leg with cellulitis and blister formation to skin surface) - Extremities Extremities: Other (2+ BL DP pulses. intact movement, sensation) - Neuro Neuro: No motor deficit, No sensory deficit - Psych Psych: Normal mood, Normal affect Results - Vitals Vitals: Vital Signs - 24 hr 11/10/21 04:51 Temperature 36.8 C Heart Rate 90 Respiratory 18 Rate Blood Pressure 142/79 H O2 Saturation 98 Oxygen O2 Source Room air PD MEDICAL DECISION MAKING - ED course ED course: POCUS on LLE without evidence of abscess. there is cobblestoning c/w cellulitis. given patient appears not to be responding to keflex after 2-3 doses in addition to IM antibiotics and given that he is diabetic, I will start him on doxycycline to cover MRSA. lines drawn to delineate areas of cellulitis. plan to f/u with Dr. Saldivar or urgent care / [place] in 48 hours to assess healing process. return precautions discussed. Departure - Departure Disposition: 01 Home, Self Care Clinical Impression: Cellulitis Condition: Stable Instructions: Cellulitis Dc Prescriptions: Mupirocin 2% Oint [Bactroban 2% Oint] 1 applic TOP TID 10 Days #50 gm Doxycycline Hyclate 100 mg PO BID 10 Days #20 tab Comments: You were seen in the ED for evaluation of cellulitis (skin infection) of the left leg. You can stop taking the antibiotic you were originally prescribed and start taking this stronger antibiotic (doxycycline). You also received a shot of the antibiotic rocephin in the ED this morning. Please keep a close eye on the leg and return to the ED if it is spreading despite taking antibiotics or if you start to have fever >100.4 by mouth or armpit thermometer. Follow up for a checkup in [address] Saldivar or urgent care or walk in clinic.
[2021-11-10] MEDS ORDERED: MUPIROCIN 2% OINT 1 GM TOP STA (05:30)
[2021-11-10] MEDS ORDERED: LIDOCAINE 1% 2 ML VIAL ONE (05:44)
== END 2021-11-10 05:56 | disposition home or self-care (01) ==
LOC: ED 04:43
DX: L03.116 Cellulitis of left lower limb (principal)
CPT/HCPCS: 96372; 99283; A9270

== ENCOUNTER 2022-05-13 01:23 | Emergency (ER) | payer MEDICAID ==
--- NOTE | 2022-05-13 02:59 | ED Physician Documentation ---
History of Present Illness - Stated complaint Stated Complaint: infected, swollen ankle - Chief complaint Chief Complaint: General - History obtained from History obtained from: Patient - History of Present Illness Timing: Yesterday Pain level now: 4 Improved by: rest Worsened by: palpation, weight-bearing - Additonal information Additional information: c/o left ankle swelling and redness c/w previous episodes of cellulitis. 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 : Renal insuffiency, Nocturia HEENT: Chronic vision loss, Other Psych: Depression, Anxiety, Other Musculoskeletal: Osteoarthritis, Fatigue, Chronic back pain Derm: Other drug resistant infections - Past Surgical History Past Surgical History: Yes Ortho: Arthroscopic surgery, Other Neuro: Craniotomy - Present Medications Home Medications: Ambulatory Orders Medication Instructions Recorded Confirmed Lisinopril 40 mg PO DAILY 06/16/16 03/05/18 Furosemide [Lasix] 80 mg PO DAILY 03/05/18 03/05/18 Metoprolol Succinate 200 mg PO DAILY 03/05/18 03/05/18 Potassium Chloride 10 meq PO DAILY 03/05/18 03/05/18 Clindamycin HCl [Clindamycin 150MG 150 mg PO TID 10 Days #90 capsule 03/06/18 CAP] Saccharomyces Boulardii [Florastor] 250 mg PO BID 20 Days #40 capsule 03/06/18 Doxycycline Hyclate 100 mg PO BID 10 Days #20 tab 11/10/21 Mupirocin 2% Oint [Bactroban 2% 1 applic TOP TID 10 Days #50 gm 11/10/21 Oint] Doxycycline Hyclate 100 mg PO BID #19 cap 05/13/22 - Allergies Allergies/Adverse Reactions: Allergies Allergy/AdvReac Type Severity Reaction Status Date / Time No Known Drug Allergies Allergy Verified 11/10/21 04:51 - Social History Does the pt smoke?: No Smoking Status: Never smoker Does the pt drink ETOH?: No Does the pt have substance abuse?: Yes - Immunizations Immunizations are current?: Yes Immunizations: TDAP >10years/unknown - POLST Patient has POLST: No POLST Status: Full Code PD ED PE NORMAL - Vitals Vital signs reviewed: Yes - General General: Alert and oriented X 3, No acute distress, Well developed/nourished PD ED PE EXPANDED - Extremities Extremities: Pedal edema bilateral, Other (bilateral chronic venous stasis changes lower legs. there is also left ankle erythema and swelling , tenderness, and increased heat to touch) Results - Vitals Vitals: Oxygen O2 Source Room air PD MEDICAL DECISION MAKING - ED course Complexity details: considered differential, d/w patient ED course: exam c/w left lower leg/ankle cellulitis, which patient says he has had before. Given IM ancef and PO doxycycline with rx for doxycycline. return precautions discussed, encouraged to follow up with PMD in 2-3 days for reevaluation Departure - Departure Disposition: 01 Home, Self Care Clinical Impression: Cellulitis Qualifiers: Site of cellulitis: extremity Site of cellulitis of extremity: lower extremity Laterality: left Qualified Code(s): L03.116 - Cellulitis of left lower limb Condition: Good Instructions: ED Infec Skin Cellulitis Prescriptions: Doxycycline Hyclate 100 mg PO BID #19 cap Comments: A prescription for doxycycline (antibiotic) has been electronically submitted to [facility] in [place]. Discharge Date/Time: 05/13/22 04:23
[2022-05-13] MEDS ORDERED: ceFAZolin 1 GM VIAL IM STA (03:11)
[2022-05-13] MEDS ORDERED: DOXYCYCLINE 100 MG TABLET PO STA (03:12)
[2022-05-13 04:24] VITALS: BP 148/79
== END 2022-05-13 04:23 | disposition home or self-care (01) ==
LOC: ED 01:23
DX: L03.116 Cellulitis of left lower limb (principal); I10 Essential (primary) hypertension
CPT/HCPCS: 99283; A9270

== ENCOUNTER 2022-12-26 12:41 | Outpatient (CLI) | payer MEDICAID ==
[2022-12-26 14:56] LABS: BASOPHILS # (AUTO) 0.1 10^3/uL (0.0-0.1); BASOPHILS % (AUTO) 0.8 %; EOSINOPHILS # (AUTO) 0.2 10^3/uL (0.0-0.7); EOSINOPHILS % (AUTO) 3.7 %; HCT - HEMATOCRIT 43.9 % (42.0-52.0); LYMPHOCYTES # (AUTO) 1.3 10^3/uL (1.5-3.5); LYMPHOCYTES % (AUTO) 19.5 %; MEAN CORPUSCULAR HGB CONC 34.2 g/dL (32.0-36.0); MEAN CORPUSCULAR VOLUME 90.7 fL (80.0-94.0); MEAN PLATELET VOLUME 8.8 fL (7.4-11.4); MONOCYTES # (AUTO) 0.5 10^3/uL (0.0-1.0); MONOCYTES % (AUTO) 7.8 %; NEUTROPHILS # (AUTO) 4.5 10^3/uL (1.5-6.6); NEUTROPHILS % (AUTO) 67.9 %; PLT - PLATELET COUNT 318 10^3/uL (130-450); RED BLOOD COUNT 4.84 10^6/uL (4.70-6.10); RED CELL DISTRIBUTION WIDTH 12.7 % (12.0-15.0); WHITE BLOOD COUNT 6.6 x10^3/uL (4.8-10.8)
[2022-12-26 15:12] LABS: ALBUMIN 3.7 g/dL (3.2-5.5); ALBUMIN/GLOBULIN RATIO 0.9 (1.0-2.2); ALKALINE PHOSPHATASE 84 IU/L (42-121); ALT ALANINE AMINOTRANSFERASE 26 IU/L (10-60); AST ASPARTATE AMINOTRANSFERASE 19 IU/L (10-42); BILIRUBIN,TOTAL 1.3 mg/dL (0.2-1.0); BUN - BLOOD UREA NITROGEN 15 mg/dL (6-20); CARBON DIOXIDE - CO2 25 mmol/L (21-32); CHLORIDE 102 mmol/L (101-111); CHOLESTEROL 167 mg/dL; CREATININE 1.1 mg/dL (0.6-1.2); GFR - MDRD 70 (>89); GLUCOSE 261 mg/dL (70-100); HDL CHOLESTEROL 42 mg/dL; LDL CHOLESTEROL,CALCULATED 86 mg/dL; POTASSIUM 4.3 mmol/L (3.5-5.0); SODIUM 135 mmol/L (135-145); TOTAL PROTEIN 7.9 g/dL (6.7-8.2); TRIGLYCERIDES 194 mg/dL; VLDL CHOLESTEROL 39 mg/dL
[2022-12-26 15:24] LABS: THYROID STIMULATING HORMONE 3.21 uIU/mL (0.34-5.60)
[2022-12-26 20:42] LABS: ESTIMATED AVERAGE GLUCOSE 246 mg/dL (70-100); HEMOGLOBIN A1c% 10.2 % (4.27-6.07)
== END 2022-12-26 12:42 | disposition home or self-care (01) ==
LOC: LAB.S 12:41
PROVIDERS: ATTEND Physician Assistant
DX: I11.0 Hypertensive heart disease with heart failure (principal); I50.9 Heart failure, unspecified; E11.8 Type 2 diabetes mellitus with unspecified complications; N28.9 Disorder of kidney and ureter, unspecified; I87.2 Venous insufficiency (chronic) (peripheral)
CPT/HCPCS: 36415; 80050; 80053; 80061; 82043; 82570; 83036; 83721

== ENCOUNTER 2023-02-22 15:34 | Outpatient (CLI) | payer MEDICAID ==
--- NOTE | 2023-02-23 19:07 | Ultrasound Report ---
PROCEDURE: Duplex Ext Veins Bilateral INDICATIONS: Joanie Kinsey, MSN TECHNIQUE: Real-time imaging, as well as color and pulse Doppler interrogation, were performed of the deep veins of both legs from the inguinal ligament to the popliteal fossa. COMPARISON: None FINDINGS: This is a markedly limited exam. The deep veins are normally compressible, and free of int raluminal thrombus. Color and pulse Doppler demonstrate normal phasic intravascular flow. There is normal augmentation response to distal compression maneuver. Small fluid collection is non the later al knee measuring 3.6 x 0.8 x 2.8 cm. This could represent a small hematoma or cyst. IMPRESSION: No deep venous thrombosis, noting markedly limited exam.. Reviewed by: Khushboo Sherman MD on 02/23/2023 7:05 PM PDT Approved by: Khushboo Sherman MD on 02/23/2023 7:05 PM PDT Station ID: [id number]
--- NOTE | 2023-02-23 20:08 | Ultrasound Report ---
PROCEDURE: Duplex Lwr Ext Arterial Bilat INDICATIONS: STASIS DERMATITIS, EDEMA, VENOUS INSUFFICIENCY TECHNIQUE: Color and pulse Doppler interrogation was performed of both lower extremity arterial systems, with im age documentation. COMPARISON: Concurrent Doppler venous study of the bilateral lower extremities FINDINGS: Right lower extremity: Common femoral artery: 104 cm/sec, with triphasic flow. Deep femoral artery: 131 cm/sec, with triphasic flow. Proximal superficial femoral artery: 94 cm/sec, with triphasic flow. Mid superficial femoral artery: 80 cm/sec, with biphasic flow. Distal superficial femoral artery: 106 cm/sec, with biphasic flow. Popliteal artery: 102 cm/sec, with biphasic flow. Posterior tibial artery: 108 cm/sec, with monophasic flow proximally and biphasic flow in the mid to distal lower leg Anterior tibial artery/dorsalis pedis: 29 cm/sec, with monophasic flow. The dorsalis pedis measured 118 cm/s with monophasic flow Marquez-scale imaging description: There is atherosclerotic plaque throughout the lower extremity. Left lower extremity: Common femoral artery: 102 cm/sec, with triphasic flow. Deep femoral artery: 70 cm/sec, with biphasic flow. Proximal superficial femoral artery: 132 cm/sec, with triphasic flow. Mid superficial femoral artery: 138 cm/sec, with triphasic flow. Distal superficial femoral artery: 150 cm/sec, with triphasic flow. Popliteal artery: 122 cm/sec, with triphasic flow. Posterior tibial artery: 104 cm/sec, with monophasic flow. Anterior tibial artery/dorsalis pedis: 102 cm/sec, with monophasic flow/66 cm/s with triphasic flow. Marquez-scale imaging description: There is atherosclerotic plaque throughout the lower extremity. IMPRESSION: 1. Multifocal narrowing of the right anterior tibial artery within the lower leg. 2. Elsewhere, no focal high-grade stenosis of the lower extremity arteries. Reviewed by: Chano Black MD on 02/23/2023 8:07 PM PDT Approved by: Chano Black MD on 02/23/2023 8:07 PM PDT Station ID: [id number]
== END 2023-02-22 15:35 | disposition home or self-care (01) ==
LOC: DI 15:34
PROVIDERS: ATTEND Nurse Practitioner
DX: I87.2 Venous insufficiency (chronic) (peripheral) (principal); R60.9 Edema, unspecified
CPT/HCPCS: 93925; 93970

== ENCOUNTER 2023-09-09 13:53 | Outpatient (CLI) | payer MEDICAID ==
[2023-09-09 19:53] LABS: BASOPHILS # (AUTO) 0.1 10^3/uL (0.0-0.1); BASOPHILS % (AUTO) 0.5 %; EOSINOPHILS # (AUTO) 0.2 10^3/uL (0.0-0.7); EOSINOPHILS % (AUTO) 2.4 %; HCT - HEMATOCRIT 47.8 % (42.0-52.0); HGB - HEMOGLOBIN 16.4 g/dL (14.0-18.0); LYMPHOCYTES % (AUTO) 21.5 %; MEAN CORPUSCULAR HEMOGLOBIN 32.1 pg (27.0-31.0); MEAN CORPUSCULAR HGB CONC 34.3 g/dL (32.0-36.0); MEAN CORPUSCULAR VOLUME 93.5 fL (80.0-94.0); MEAN PLATELET VOLUME 9.3 fL (7.4-11.4); MONOCYTES # (AUTO) 0.6 10^3/uL (0.0-1.0); MONOCYTES % (AUTO) 6.7 %; NEUTROPHILS # (AUTO) 6.5 10^3/uL (1.5-6.6); NEUTROPHILS % (AUTO) 68.7 %; PLT - PLATELET COUNT 340 10^3/uL (130-450); RED BLOOD COUNT 5.11 10^6/uL (4.70-6.10); RED CELL DISTRIBUTION WIDTH 12.8 % (12.0-15.0); WHITE BLOOD COUNT 9.4 x10^3/uL (4.8-10.8)
[2023-09-09 20:15] LABS: ALBUMIN 4.2 g/dL (3.2-5.5); ALBUMIN/GLOBULIN RATIO 1.3 (1.0-2.2); BILIRUBIN,TOTAL 0.9 mg/dL (0.2-1.0); CREATININE 1.2 mg/dL (0.6-1.3); TOTAL PROTEIN 7.5 g/dL (6.4-8.9)
[2023-09-09 21:46] LABS: ESTIMATED AVERAGE GLUCOSE 303 mg/dL (70-100); HEMOGLOBIN A1c% 12.2 % (4.27-6.07)
== END 2023-09-09 13:54 | disposition home or self-care (01) ==
LOC: LAB.S 13:53
PROVIDERS: ATTEND Nurse Practitioner Family
DX: I11.0 Hypertensive heart disease with heart failure (principal); E66.01 Morbid (severe) obesity due to excess calories; E11.8 Type 2 diabetes mellitus with unspecified complications
CPT/HCPCS: 36415; 80053; 83036; 85025

== ENCOUNTER 2024-12-24 22:07 | Observation (INO) ==
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
[2024-12-24 22:34] LABS: BASOPHILS % (AUTO) 0.2 %; EOSINOPHILS # (AUTO) 0.1 10^3/uL (0.0-0.7); HCT - HEMATOCRIT 45.5 % (42.0-52.0); HGB - HEMOGLOBIN 16.2 g/dL (14.0-18.0); LYMPHOCYTES # (AUTO) 1.3 10^3/uL (1.5-3.5); LYMPHOCYTES % (AUTO) 9.6 %; MEAN CORPUSCULAR HEMOGLOBIN 32.3 pg (27.0-31.0); MEAN CORPUSCULAR HGB CONC 35.6 g/dL (32.0-36.0); MEAN CORPUSCULAR VOLUME 90.6 fL (80.0-94.0); MEAN PLATELET VOLUME 8.7 fL (7.4-11.4); MONOCYTES % (AUTO) 7.4 %; NEUTROPHILS # (AUTO) 11.1 10^3/uL (1.5-6.6); NEUTROPHILS % (AUTO) 81.6 %; PLT - PLATELET COUNT 302 10^3/uL (130-450); RED BLOOD COUNT 5.02 10^6/uL (4.70-6.10); RED CELL DISTRIBUTION WIDTH 12.6 % (12.0-15.0); WHITE BLOOD COUNT 13.6 x10^3/uL (4.8-10.8)
[2024-12-24] MEDS ORDERED: ceFAZolin 2 GM VIAL ONE (22:44)
[2024-12-24] MEDS ORDERED: VANCOMYCIN 1 GM VIAL ONE (22:44)
[2024-12-24 22:47] LABS: ALBUMIN/GLOBULIN RATIO 1.5 (1.0-2.2); BILIRUBIN,TOTAL 1.2 mg/dL (0.2-1.0); CALCIUM 9.2 mg/dL (8.5-10.3); CREATININE 1.1 mg/dL (0.6-1.3); TOTAL PROTEIN 6.6 g/dL (6.4-8.9)
[2024-12-24] MEDS: ceFAZolin (2G) 2 GM in SODIUM CHLORIDE 0.9% 100ML 100 ML IV STA (22:53)
[2024-12-24] MEDS: SODIUM CHLORIDE 0.9% 1,000 ML IV STA (22:56)
[2024-12-24] MEDS: BUFFERED LIDOCAINE 10 ML SYRINGE SUBQ STA (22:57)
[2024-12-24] MEDS ORDERED: ONDANSETRON 4 MG/2 ML VIAL IVP PRN (23:11)
[2024-12-24] MEDS ORDERED: ACETAMINOPHEN 500 MG TABLET PO PRN (23:11)
[2024-12-24] MEDS: PROPOFOL 200 MG/20 ML VIAL IVP STA (23:24)
[2024-12-24] MEDS ORDERED: MORPHINE 10 MG/ML VIAL IVP PRN (23:52)
[2024-12-24] MEDS ORDERED: MELATONIN 3 MG TABLET PO PRN (23:52)
[2024-12-24] MEDS: VANCOMYCIN INJ 2.5 GM in SODIUM CHLORIDE 0.9% 500 ML IV STA (23:52)
--- NOTE | 2024-12-24 23:58 | ED Physician Documentation ---
ED Addendum Addendum Addendum: I received signout/turnover of care on this patient from Dr. Davenport; please see his note for complete H&P. In brief, this patient was evaluated earlier today in the outpatient setting (clinic) for right axillary/chest wall abscess/cellulitis for which he was given 1 g IM Rocephin and advised to come to this emergency department for further evaluation. Patient was reportedly febrile in the clinic although afebrile in the ED. Tonight he is found to have leukocytosis (WBC 13.6), consistently tachycardic. Dr. Davenport performed I+D, and IV vancomycin and Ancef are given. Just as Dr. Davenport's shift ended, a bed became available and thus I discussed this case with the [facility] telehealth practitioner on duty who accepts patient to hospitalist service. Discharge Plan Discharge Patient Disposition: 66 [facility] DC/Xfer Condition: Serious Clinical Impression: Abscess Sepsis Qualifiers: Sepsis type: sepsis due to unspecified organism Sepsis acute organ dysfunction status: unspecified Qualified Code(s): A41.9 - Sepsis, unspecified organism Prescriptions: No Action methocarbamol 500 mg tablet 500 mg PO TID Qty: 30 0RF lisinopril 20 MG tablet 40 mg PO DAILY furosemide [Lasix] 80 MG tablet 80 mg PO DAILY metoprolol succinate 200 MG tablet extended release 24 hr 200 mg PO DAILY potassium chloride 10 MEQ tablet extended release 20 meq PO DAILY Saccharomyces boulardii [Florastor] 250 MG capsule 250 mg PO BID 20 Days Qty: 40 0RF insulin lispro [Humalog KwikPen Insulin] 100 UNIT/ML insulin pen 15 units subcut TID Patient Comments: Inject 15 unit subcutaneously three times a day after meals Rx Instructions: after meals insulin glargine [Lantus Solostar U-100 Insulin] 100 UNIT/ML insulin pen 30 units subcut DAILY Patient Comments: Inject 30 unit subcutaneously once a day Print Language: Turkish
[2024-12-25 00:03] VITALS: BP 154/91
[2024-12-25 00:19] LABS: CHOL/HDL RATIO 3.2 (<5.0); CHOLESTEROL 164 mg/dL; HDL CHOLESTEROL 51 mg/dL
[2024-12-25 00:28] LABS: LDL CHOLESTEROL,CALCULATED 62 mg/dL; LDL/HDL RATIO 1.2 (<3.6); TRIGLYCERIDES 256 mg/dL; VLDL CHOLESTEROL 51 mg/dL
[2024-12-25 00:44] LABS: THYROID STIMULATING HORMONE 1.58 uIU/mL (0.34-5.60)
[2024-12-25] MEDS: HYDROmorphone 0.5 MG/0.5 ML SYRINGE IVP STA (00:47)
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
[2024-12-25] MEDS: PIPERACILLIN/TAZOBACTAM 3.375 GM in SODIUM CHLORIDE 0.9% MINIBAG 100 ML IV SCH (04:56)
[2024-12-25] MEDS: ceFAZolin 1 GM in SODIUM CHLORIDE 0.9% MINIBAG 100 ML IV SCH (05:45)
[2024-12-25] MEDS: methocarbamoL 500 MG TABLET PO SCH (05:46)
[2024-12-25] MEDS: PANTOPRAZOLE 40 MG TABLET PO SCH (05:46)
[2024-12-25 05:53] LABS: BASOPHILS % (AUTO) 0.1 %; EOSINOPHILS % (AUTO) 0.7 %; HCT - HEMATOCRIT 43.9 % (42.0-52.0); HGB - HEMOGLOBIN 15.2 g/dL (14.0-18.0); LYMPHOCYTES % (AUTO) 7.8 %; MEAN CORPUSCULAR HEMOGLOBIN 31.4 pg (27.0-31.0); MEAN CORPUSCULAR HGB CONC 34.6 g/dL (32.0-36.0); MEAN CORPUSCULAR VOLUME 90.7 fL (80.0-94.0); MEAN PLATELET VOLUME 8.9 fL (7.4-11.4); MONOCYTES % (AUTO) 9.6 %; NEUTROPHILS % (AUTO) 81.4 %; PLT - PLATELET COUNT 283 10^3/uL (130-450); RED BLOOD COUNT 4.84 10^6/uL (4.70-6.10); RED CELL DISTRIBUTION WIDTH 12.5 % (12.0-15.0); WHITE BLOOD COUNT 16.2 x10^3/uL (4.8-10.8)
[2024-12-25 06:00] LABS: ABNORMAL LYMPHS % (MANUAL) 0 %
[2024-12-25 06:11] LABS: ALBUMIN 3.6 g/dL (3.2-5.5); ALBUMIN/GLOBULIN RATIO 1.1 (1.0-2.2); BILIRUBIN,TOTAL 1.7 mg/dL (0.2-1.0); CALCIUM 8.1 mg/dL (8.5-10.3); CREATININE 0.9 mg/dL (0.6-1.3); MAGNESIUM 1.7 mg/dL (1.7-2.3); POTASSIUM 3.6 mmol/L (3.5-4.5); TOTAL PROTEIN 6.8 g/dL (6.4-8.9)
[2024-12-25 06:23] LABS: BAND NEUTROPHILS % (MANUAL) 1 %; DIFFERENTIAL COMMENT MANUAL DIFFERENTIAL; LYMPHOCYTES # (MANUAL) 0.6 10^3/uL (1.5-3.5); LYMPHOCYTES % (MANUAL) 4 %; MONOCYTES # (MANUAL) 2.1 10^3/uL (0.0-1.0); NEUTROPHILS # (MANUAL) 13.4 10^3/uL (1.5-6.6); PLATELET ESTIMATE, MANUAL NORMAL (130-450,000) (NORMAL); PLATELET MORPHOLOGY NORMAL APPEARANCE (NORMAL); RBC MORPHOLOGY (MULTIPLE) NORMAL APPEARANCE (NORMAL); WBC MORPHOLOGY (MULTIPLE) NORMAL APPEARANCE (NORMAL)
[2024-12-25] MEDS: METOPROLOL 5 MG/5 ML VIAL IVP ONE (06:23)
[2024-12-25] MEDS ORDERED: MORPHINE 2 MG/ML CARPUJECT IVP PRN (08:46)
[2024-12-25] MEDS: LACTOBACILLUS RHAMNOSUS GG CAPSULE PO SCH (09:14)
[2024-12-25] MEDS: POTASSIUM CHLORIDE 20 MEQ TABLET PO SCH (09:14)
[2024-12-25] MEDS: ASCORBIC ACID 500 MG TABLET PO SCH (09:14)
[2024-12-25] MEDS: FUROSEMIDE 40 MG TABLET PO SCH (09:14)
[2024-12-25] MEDS: lisinopriL 20 MG TABLET PO SCH (09:14)
[2024-12-25] MEDS: MULTIVITAMIN W/MINERALS TABLET PO SCH (09:14)
[2024-12-25] MEDS: SACCHAROMYCES BOULARDII 250 MG CAPSULE PO SCH (09:14)
[2024-12-25] MEDS: METOPROLOL SUCCINATE 50 MG TABLET PO SCH (09:15)
[2024-12-25] MEDS: INSULIN LISPRO 300 UNIT/3 ML PEN SUBQ STA (09:16)
[2024-12-25] MEDS: INSULIN LISPRO 300 UNIT/3 ML PEN SUBQ SCH ×3 (09:16→17:45)
[2024-12-25] MEDS: ENOXAPARIN 40 MG/0.4 ML SYRINGE SUBQ SCH (09:17)
[2024-12-25] MEDS: INSULIN GLARGINE-YFGN 300 UNIT/3 ML PEN SUBQ SCH ×2 (10:18→21:32)
[2024-12-25] MEDS: VANCOMYCIN INJ 1 GM, VANCOMYCIN INJ 500 MG in SODIUM CHLORIDE 0.9% 500 ML IV SCH (10:18)
[2024-12-25 10:43] LABS: ESTIMATED AVERAGE GLUCOSE 263 mg/dL (70-100); HEMOGLOBIN A1c% 10.8 % (4.27-6.07)
--- NOTE | 2024-12-25 11:38 | PHARMACY PROGRESS NOTE ---
Best Possible Medication History Admit Date and Time: 12/24/24 1772 Home Medications Medication Instructions Recorded Confirmed Type lisinopril 20 mg tablet 40 mg PO DAILY 06/16/16 12/25/24 History furosemide 80 mg tablet (Lasix) 80 mg PO DAILY 03/05/18 12/25/24 History metoprolol succinate 200 mg 200 mg PO DAILY 03/05/18 12/25/24 History tablet,extended release 24 hr potassium chloride 10 mEq 20 meq PO DAILY 03/05/18 12/25/24 History tablet,extended release insulin glargine 100 unit/mL (3 30 units subcut DAILY 11/25/23 12/25/24 History mL) subcutaneous pen (Lantus Solostar U-100 Insulin) insulin lispro 100 unit/mL 15 units subcut TID 11/25/23 12/25/24 History subcutaneous pen (Humalog KwikPen (U-100) Insulin) metformin 1,000 mg tablet,extended 1,000 mg PO DAILY 12/25/24 12/25/24 History release 24hr (osmotic) (Fortamet) Processed by: Pharmacy Medications reviewed in ED?: No Medication History completed: Yes Patient Interview: Completed [facility] Statement: As the person ultimately responsible for medication therapy, providers are able to order a medication from an existing home medication list in [facility] via the "Reconcile Routine" prior to Confirmation of that medication by technology support analyst. Such practice is discouraged except when the physician, in their clinical judgment, deems that a medical need exists for a medication without regard to previous use.
[2024-12-25 13:30] LABS: AMPHETAMINE SCREEN,URINE POSITIVE (NEGATIVE); BARBITURATE SCREEN,UR NEGATIVE (NEGATIVE); BENZODIAZEPINES SCREEN, URINE NEGATIVE (NEGATIVE); BUPRENORPHINE SCREEN, URINE NEGATIVE (NEGATIVE); COCAINE SCREEN URINE POSITIVE (NEGATIVE); METHADONE SCREEN, URINE NEGATIVE (NEGATIVE); METHAMPHETAMINES SCREEN, URINE POSITIVE (NEGATIVE); OPIATE SCREEN, URINE NEGATIVE (NEGATIVE); OXYCODONE SCREEN, URINE NEGATIVE (NEGATIVE); THC CANNABINOID SCREEN, URINE NEGATIVE (NEGATIVE); TRICYCLIC ANTIDEPRESSANT,URINE NEGATIVE (NEGATIVE)
[2024-12-25] MEDS ORDERED: SODIUM CHLORIDE 0.9% 500 ML IV ONE (21:13)
[2024-12-26 06:22] LABS: HCT - HEMATOCRIT 44.4 % (42.0-52.0); HGB - HEMOGLOBIN 15.1 g/dL (14.0-18.0); MEAN CORPUSCULAR HEMOGLOBIN 31.6 pg (27.0-31.0); MEAN CORPUSCULAR VOLUME 92.9 fL (80.0-94.0); MEAN PLATELET VOLUME 9.4 fL (7.4-11.4); RED BLOOD COUNT 4.78 10^6/uL (4.70-6.10); RED CELL DISTRIBUTION WIDTH 12.5 % (12.0-15.0); WHITE BLOOD COUNT 11.4 x10^3/uL (4.8-10.8)
[2024-12-26 06:42] LABS: CALCIUM 8.1 mg/dL (8.5-10.3); CREATININE 1.1 mg/dL (0.6-1.3); MAGNESIUM 1.9 mg/dL (1.7-2.3)
[2024-12-26 08:24] VITALS: TEMP 97.9
[2024-12-26] MEDS ORDERED: VANCOMYCIN 500 MG VIAL ONE (10:13)
--- NOTE | 2024-12-26 10:25 | Discharge Summary ---
Discharge Summary Admit Date: 12/25/24 Discharge Date: 12/26/24 Discharging Provider: Dr. Jose Mariee Primary Care Provider: [facility] Code Status: Attempt Resuscitation Discharge Facility Name: Home, [facility] DIAGNOSES Admission Diagnoses: Right axillary abscess Fevers, chills, leukocytosis, tachycardia Type 2 diabetes mellitus with hyperglycemia Elevated blood pressure Cannabis use Discharge Diagnoses with Status of Each Condition: Right axillary abscesspatient was advised to stay for further treatment with IV antibiotics. He still has a lot of purulent discharge from the packing, as well as streaking across his right upper chest, and back. He was insistent on going home. He left AGAINST MEDICAL ADVICE. I did manage to convince him to do a 14- day course of oral antibiotics. I have sent this to his pharmacy. Leukocytosisresolving. Uncontrolled type II diabetes mellitus, with hyperglycemiapatient states he takes insulin at home, long-acting and short acting. Sugars were high based on his home regimen here. Advised to see his primary care provider, keep a glucose log, and follow-up closely outpatient. Hypertensioncontinue patient's home metoprolol, lisinopril, Lasix. Polysubstance use, cannabis, cocaine, methamphetamine, amphetaminestrongly suggested to abstain from use. Patient is not interested in resources at this time. HPI History of Present Illness: Per Dr. Giles: pt presents with R underarm swelling and pain, which he thinks is a "spider bite", after cleaning out storage shed in last 24 hours. he came to clinic on 12/24/24, and was given dose of rocephin IM, and was told to come to ER d/t fevers, chills, tachycardia, and concern for sepsis. pt was evaluated in the ER and I&D was done of underarm abscess, and pt feels relief. no chest pain or sob. pt has h/o abscesses in the past, along with h/o MRSA. he denies tobacco or etoh, but does smoke occasional cannabis. no other drugs. pt lives with friend. HOSPITAL COURSE Hospital Course: Patient is a 54 year old male with a history of uncontrolled diabetes mellitus, polysubstance use including meth, amphetamine and cannabis use, who presented for pain under his right armpit. He believes he got bit by a spider. Incision and drainage was done in the emergency room. Packing was left in the incision. He was started on vancomycin and Zosyn. Wound culture was sent. It is growing Staph aureus, susceptibilities are pending. Today, when the wound was examined, there was streaking across his chest. He still had some swelling and tenderness to palpation. He was advised that he needs another day of IV antibiotics. Patient was insistent on going home. Risk of leaving AGAINST MEDICAL ADVICE were explained including worsening infection, bacteremia, endocarditis, and even . Patient understood the risk, and left AGAINST MEDICAL ADVICE. ALLERGIES Allergies Allergy/AdvReac Type Severity Reaction Status Date / Time No Known Drug Allergies Allergy Verified 12/24/24 22:11 MEDICATIONS Ambulatory Orders Medication Instructions Recorded Confirmed lisinopril 20 mg tablet 40 mg PO DAILY 06/16/16 12/25/24 furosemide 80 mg tablet (Lasix) 80 mg PO DAILY 03/05/18 12/25/24 metoprolol succinate 200 mg 200 mg PO DAILY 03/05/18 12/25/24 tablet,extended release 24 hr potassium chloride 10 mEq 20 meq PO DAILY 03/05/18 12/25/24 tablet,extended release insulin glargine 100 unit/mL (3 30 units subcut DAILY 11/25/23 12/25/24 mL) subcutaneous pen (Lantus Solostar U-100 Insulin) insulin lispro 100 unit/mL 15 units subcut TID 11/25/23 12/25/24 subcutaneous pen (Humalog KwikPen (U-100) Insulin) metformin 1,000 mg tablet,extended 1,000 mg PO DAILY 12/25/24 12/25/24 release 24hr (osmotic) (Fortamet) doxycycline hyclate 100 mg capsule 100 mg PO BID 12 days #24 caps 12/26/24 PHYSICAL EXAM AT DISCHARGE General Appearance: positive No acute distress and Alert; negative Anxious Eyes Bilateral: positive Normal inspection, PERRL and EOMI ENT: positive ENT inspection nml and Pharynx nml Neck: positive Nml inspection, Thyroid nml and No JVD Respiratory: positive Chest non-tender and No respiratory distress; negative Wheezes, Rales or Rhonchi Cardiovascular: positive Regular rate & rhythm, No murmur and No gallop Peripheral Pulses: positive 2+ Abdomen: positive Non-tender; negative Guarding, Rebound, Hepatomegaly, Splenomegaly or Mass Back: positive Nml inspection; negative CVA tenderness (R) or CVA tenderness (L) Skin: positive Color nml, No rash, Warm, Dry and Other (Right axillary abscess with still some swelling noted, packing within, streaking and redness extending from the axillary region to mid chest, and mid back) Extremities: positive Non-tender, Full ROM and Nml appearance Neurologic/Psychiatric: positive Oriented x3 and Mood/affect nml LABS 12/26/24 05:42 12/26/24 05:42 DIAGNOSTIC IMAGING Diagnostic Imaging Results: Final report reviewed SEPSIS Current Stage of Sepsis: Sepsis Possible source of Sepsis: Skin/soft tissue Sepsis Criteria: Recorded Heart Rate greater than 90 bpm and WBC count greater than 12,000 or less than 4000 FOLLOW UP Follow Up: Follow up with primary care provider. TIME SPENT Time Spent in Discharge (Minutes): 35 Discharge Plan Discharge Patient Disposition: Against Medical Advice Condition: Serious Prescriptions: New doxycycline hyclate 100 mg capsule 100 mg PO BID 12 Days Qty: 24 0RF Continued lisinopril 20 MG tablet 40 mg PO DAILY furosemide [Lasix] 80 MG tablet 80 mg PO DAILY metoprolol succinate 200 MG tablet extended release 24 hr 200 mg PO DAILY potassium chloride 10 MEQ tablet extended release 20 meq PO DAILY insulin lispro [Humalog KwikPen Insulin] 100 UNIT/ML insulin pen 15 units subcut TID Patient Comments: Inject 15 unit subcutaneously three times a day after meals Rx Instructions: after meals insulin glargine [Lantus Solostar U-100 Insulin] 100 UNIT/ML insulin pen 30 units subcut DAILY Patient Comments: Inject 30 unit subcutaneously once a day metformin [Fortamet] 1,000 mg tablet extended release 24hr 1,000 mg PO DAILY Diet: Diabetic Interventions: Discharge Last Done: 12/26/24 13:05 Discharge Checklist - Nursing Last Done: 12/26/24 13:05 Health Concerns: You came in because you had an abscess in your right armpit. They performed a small incision and allowed the abscess to drain in the emergency room. Please continue to let it drain, and change your wound dressing daily. You completed a few days of IV antibiotics. I am sending you home with 12 more days oral antibiotics. Please complete this course. I am awaiting final susceptibilities for your wound culture, if anything changes, I will give you a call. Please continue to take your insulin as prescribed. Please work on maintaining a diabetic diet. Please follow-up with your primary care provider in 1 to 2 weeks to reassess the wound. You are leaving AGAINST MEDICAL ADVICE. I would like you to stay for a few more days of IV antibiotics as your infection appears to be spreading to your skin. I would like to monitor you closely. We talked about the risks of leaving AGAINST MEDICAL ADVICE including the spread of infection to your blood, the infection reaching your heart, and even . Print Language: [place]izean Patient Instructions: Drainage Abscess Stand Alone Forms: PCP List
[2024-12-26 12:21] VITALS: BP 141/78; O2SAT 95
== END 2024-12-26 12:15 | disposition left against medical advice (07) ==
LOC: MS2 22:07 → ED 22:07 → MS2 12-25 01:06
PROVIDERS: ADMIT Student in an Organized Health Care Education/Training Program; ATTEND Student in an Organized Health Care Education/Training Program
DX: E11.65 Type 2 diabetes mellitus with hyperglycemia; A41.9 Sepsis, unspecified organism; Z79.4 Long term (current) use of insulin; L02.411 Cutaneous abscess of right axilla; Z86.14 Personal history of Methicillin resistant Staphylococcus aureus infection; B95.61 Methicillin susceptible Staphylococcus aureus infection as the cause of diseases classified elsewhere; Z53.29 Procedure and treatment not carried out because of patient's decision for other reasons; I10 Essential (primary) hypertension